=== PATIENT | male | born 2000 | race Caucasian/White ===

== ENCOUNTER 2023-03-01 09:17 | Emergency (ER) | payer SELFPAY ==
[2023-03-01] MEDS ORDERED: Lidocaine 1% 10 ML MDV INJECT ONE (09:38)
[2023-03-01] MEDS ORDERED: Diphtheria,Pertussis(Acell),Tetanus Vaccine 0.5 ML Syringe IM ONE (09:58)
== END 2023-03-01 10:21 | disposition home or self-care (01) ==
LOC: JP.ED 09:17
DX: S61.511A Laceration without foreign body of right wrist, initial encounter (principal); K21.9 Gastro-esophageal reflux disease without esophagitis; Z79.899 Other long term (current) drug therapy; Z23 Encounter for immunization; W25.XXXA Contact with sharp glass, initial encounter
CPT/HCPCS: 12002; 90471; 90715; 99282